=== PATIENT | female | born 1980 | race Caucasian/White ===

== ENCOUNTER 2024-07-19 13:08 | Emergency (ER) | payer SELFPAY ==
[~2024-07-19] VITALS: Ht 162.6 cm; Wt 64.0 kg
[2024-07-19 13:26] VITALS: O2SAT 100
[2024-07-19 13:30] VITALS: BP 107/75; PULSE 108; RESP 18; TEMP 36.9; O2SAT 100
[2024-07-19] MEDS ORDERED: SODIUM CHLORIDE 0.9% 500 ML IV ONE (14:45)
[2024-07-19] MEDS ORDERED: LORAZEPAM 2MG/ML INJ IV ONE (15:00)
[2024-07-19] MEDS ORDERED: LORAZEPAM 2MG/ML UD SYRINGE IM NR (15:00)
[2024-07-19] MEDS ORDERED: DIPHENHYDRAMINE 50MG/ML VIAL IM ONE (15:00)
[2024-07-19] MEDS ORDERED: HALOPERIDOL LACTATE 5MG/ML VIAL IM ONE (15:00)
== END 2024-07-19 15:22 | disposition home or self-care (01) ==
LOC: ER 13:08
DX: R46.2 Strange and inexplicable behavior (principal)
CPT/HCPCS: 99283; J1200; J1630; Z7610 ×3; J2060